=== PATIENT | male | born 1970 | race Caucasian/White ===

== ENCOUNTER 2017-01-15 14:25 | Emergency (ER) | payer OTHER ==
[~2017-01-15] VITALS: Ht 167.6 cm; Wt 73.5 kg
[2017-01-15 14:39] VITALS: BP 117/76
[2017-01-15] MEDS ORDERED: KETOROLAC 30 MG/1 ML IM ONE (15:30)
[2017-01-15] MEDS ORDERED: KETOROLAC 30 MG/1 ML ONE (15:33)
== END 2017-01-15 16:25 | disposition home or self-care (01) ==
LOC: ED 16:19
DX: S39.012A Strain of muscle, fascia and tendon of lower back, initial encounter (principal); M51.36 Other intervertebral disc degeneration, lumbar region; X58.XXXA Exposure to other specified factors, initial encounter; Y93.01 Activity, walking, marching and hiking; Y92.89 Other specified places as the place of occurrence of the external cause; Y99.8 Other external cause status
CPT/HCPCS: 72110; 96372; 99284; J1885

== ENCOUNTER 2017-01-16 22:25 | Emergency (ER) | payer OTHER ==
[~2017-01-16] VITALS: Ht 167.6 cm; Wt 70.0 kg
[2017-01-16 22:26] VITALS: BP 111/75
[2017-01-16] MEDS ORDERED: KETOROLAC 30 MG/1 ML ONE (23:10)
[2017-01-16] MEDS ORDERED: KETOROLAC 30 MG/1 ML IM ONE (23:30)
== END 2017-01-17 00:06 | disposition home or self-care (01) ==
LOC: ED 23:59
DX: M54.5 Low back pain (principal); M51.36 Other intervertebral disc degeneration, lumbar region; N40.0 Benign prostatic hyperplasia without lower urinary tract symptoms
CPT/HCPCS: 96372; 99283; J1885

== ENCOUNTER 2020-02-21 18:49 | Emergency (ER) | payer MEDICAID, OTHER ==
[~2020-02-21] VITALS: Ht 170.2 cm; Wt 64.5 kg
[2020-02-21 19:12] VITALS: BP 114/69
[2020-02-21] MEDS ORDERED: LIDOCAINE-MPF 1%, 5ML ONE (19:42)
--- NOTE | 2020-02-21 19:47 | NUR ---
YUNG PULLED FOR PROVIDER ADMIN
[2020-02-21] MEDS ORDERED: LIDOCAINE 1%, 10ML INFIL ONE (20:00)
== END 2020-02-21 20:53 | disposition home or self-care (01) ==
LOC: ED 20:07
DX: L02.413 Cutaneous abscess of right upper limb (principal)
CPT/HCPCS: 10060; 99283